=== PATIENT | female | born 1955 | race Caucasian/White ===

== ENCOUNTER 2019-07-21 16:59 | Inpatient (IN) | payer OTHER ==
[~2019-07-21] VITALS: Ht 165.1 cm; Wt 54.4 kg
--- NOTE | ~2019-07-21 | EC ---
PATIENT:JULIET WELLER DATE OF SERVICE: 07/21/19 SEX: F MEDICAL RECORD: [id number] DATE OF : 55 LOCATION:[facility] D230 AGE OF PATIENT: 64 ADMISSION DATE: 07/21/19 REFERRING PHYSICIAN: INTERPRETING PHYSICIAN: GREGORY MARR MD ECHOCARDIOGRAM REPORT ECHO CHARGES 4 ECHO COMPLETE Date: 07/22/19 CLINICAL DIAGNOSIS: CHF ECHOCARDIOGRAPHIC MEASUREMENTS (adult normal given) AC root (d.<3.7cm) 2.0 cm LV Septum d (<1.2 cm> 1.0 cm Valve Excursion 1.6 cm LV Septum (systole) 1.1 cm Left Atria (s.<4.0cm> 3.2 cm LVPW d(<1.2cm) 0.8 cm RV (d.<2.3cm) 3.0 cm LVPW (sytole) 1.0 cm LV diastole(<5.6CM) 3.7 cm MV E-F(>70mm/sec) cm LV systole 2.7 cm LVOT Diameter 1.9 cm MV exc.(>10mm) cm Est.ejection fraction (50-75%) % DOPPLER: LVIT cm/sec A 52 cm/sec E 70 cm/sec LA cm/sec RVSP 37.5 mmHg LVOT 81 cm/sec AOP1/2T m/s Asc. Ao 112 cm/sec RVOT 53 cm/sec RA cm/sec PA 73 cm/sec AV Gradient Peak 5.0 mmHg AV Mean 2.6 mmHg AV Area 2.4 cm MV Gradient Peak 3.6 mmHg MV Mean 1.6 mmHg MV Area cm COMMENTS: Lawn Mower Sharpener: Jean ESPAÑA Ui Ux Engineer: 1 Dr. Marr TAPE# PACS Pericardial Effusion N DATE OF SERVICE: 07/22/2019 FINDINGS: 1. Left ventricular chamber size is within normal limits. Left ventricular systolic function is normal. Overall ejection fraction estimated at 55%. 2. Left atrium, right atrium, and right ventricle chamber sizes are within normal limits. 3. Valvular structures have normal structure and motion. 4. Doppler interrogation reveals mild mitral regurgitation, mild tricuspid regurgitation, no other valvular insufficiency or stenosis. ECHOCARDIOGRAM REPORT [id number] JULIET WELLER 5. No evidence of pericardial effusion or left ventricular thrombus. TRANSINT:[id number] Voice Confirmation ID: [id number] DOCUMENT ID: [id number] GREGORY MARR MD CC: [id number] DICTATION DATE: 07/23/19 1227 MARINE STEWARD: 07/23/19 1541 ADM IN [place] [id number] [place] [id number]
[2019-07-21] MEDS ORDERED: CETIRIZINE HCL5 MG PO (17:08)
[2019-07-21] MEDS ORDERED: SYMBICORT 16010.2 GM INH (17:11)
[2019-07-21] MEDS ORDERED: SPIRIVA18 MCG INH (17:11)
[2019-07-21] MEDS ORDERED: ATIVAN1 MG PO (17:12)
[2019-07-21] MEDS ORDERED: LAMICTAL150 M1 PO (17:13)
[2019-07-21] MEDS ORDERED: METHOCARBAMOL750 MG NG (17:13)
[2019-07-21] MEDS ORDERED: NAPROSYN500 MG PO (17:13)
--- NOTE | 2019-07-21 17:26 | NUR ---
PT ARRIVED VIA [facility] AT BEDSIDE. VSS. DR SHERIFF NOTIFIED. WILL CONTINUE TO MONITOR
[2019-07-21 19:00] VITALS: BP 120/74
--- NOTE | 2019-07-21 19:10 | NUR ---
RECEIVED BEDSIDE SHIFT REPORT, ORAL CARE PERFORMED, TURNED FOR COMFORT AND SKIN INTEGRITY, NG TUBE PLACEMENT CHECKED AMISSIONS ASSESSMENT COMPLETED. SEE FLOWSHEETR
[2019-07-21 20:00] VITALS: BP 124/62
[2019-07-21 21:00] VITALS: BP 128/63
[2019-07-21 22:00] VITALS: BP 111/59
--- NOTE | 2019-07-21 22:39 | NUR ---
UNABLE TO OBTAIN SUICIDE SCREENING AT THIST TIME UNABLE TO ANSWER QUESTIONS APPROPRIATELY
[2019-07-21 22:54] VITALS: BP 124/76
[2019-07-21 23:00] VITALS: BP 89/50
--- NOTE | 2019-07-21 23:10 | NUR ---
REASSESSMENT COMPLETED SEE FLOWSEET
[2019-07-22] VITALS (23 sets, daily range): BP systolic 120–136; BP diastolic 56–72; BMI 19.9
--- NOTE | 2019-07-22 00:04 | NUR ---
PT RESTING COMFORTABLY SHIFT ASSESSMENT COMPLETED
[2019-07-22 04:26] LABS: BASOPHILS 0.1 % (0-2); EOSINOPHILS 0 % (0-7); HEMATOCRIT 40.9 % (36.0-48.0); HEMOGLOBIN 13.3 g/dL (12-16); IMMATURE GRANULOCYTES 2.5 % (0-5); LYMPHOCYTES 8.7 % (15-50); MCH 28.9 pg (26.0-34.0); MCHC 32.5 g/dL (31.0-37.0); MCV 88.7 fL (80.0-100.0); MEAN PLATELET VOLUME 9.5 fL (7.4-10.4); MONOCYTES 9.4 % (2-11); NEUTROPHILS 79.3 % (40-80); PLATELET COUNT 249 10x3/uL (130-400); RBC 4.61 10x6/uL (4.00-5.40); RDW 13.2 % (11.5-14.5); WBC 12.2 10x3/uL (4.8-10.8)
[2019-07-22 04:36] LABS: INR 1.17 (0.85-1.17); PROTIME 14.4 SECONDS (11.6-15.0)
[2019-07-22 04:37] LABS: D-DIMER-QUANTITATIVE 0.96 ug/mLFEU (0.20-0.54)
[2019-07-22 05:08] LABS: ALBUMIN 2.4 g/dL (3.4-5.0); ALKALINE PHOSPHATASE 56 U/L (46-116); ALT (SGPT) 37 U/L (10-68); CALC OSMOLALITY 270 mosm/kg (275-300); CALCIUM 7.7 mg/dL (8.5-10.1); CHLORIDE - SERUM 98 mmol/L (98-107); CREATININE - SERUM 0.4 mg/dL (0.6-1.3); GLUCOSE 121 mg/dL (74-106); MAGNESIUM - SERUM 2.1 mg/dL (1.8-2.4); PHOSPHOROUS 2.8 mg/dL (2.5-4.9); PRO BNP 1203 pg/mL (0-125); PROTEIN - SERUM 5.8 g/dL (6.4-8.2); SODIUM 136 mmol/L (136-145); UREA NITROGEN 8 mg/dL (7-18); eGFR NON AFRICAN AMERICAN > 90 mL/min (90-120)
--- NOTE | 2019-07-22 07:00 | NUR ---
RECEIVED BEDSIDE REPORT ON PATIENT AND ASSUMED CARE. PATIENT SEDATED ON VENT, AROUSES TO STIMULI AND FOLLOWS COMMANDS. VSS. CM - SR RATE 65 WITH NO ECTOPY NOED. BBS - CLEAR AND EQUAL, WITH SPO2 OF 96% VENT SETTINGS ARE A/C 15, TV 500, PEEP 5 AND FO2 30%. MIDLINE CATHETER TO LEFT UPPER ARM, DRESSING C/D/I, DATED 07/21/19, INFUSING FNS AT 75 CC/HR AND FENTANYL AT 0.5 CC/HR OR 25 MCG/HR, W/O DIFFICUTLY. SCD'S IN PLACE. HEAD TO TOE ASSESSMENT COMPLETED. PATIENT TURNED AND REPOSITONED.
--- NOTE | 2019-07-22 08:46 | NUR ---
PATEINT RESTING QUIETLY, SEDATED ON VENT. VSS. TURNED AND REPOSITIONED.
--- NOTE | 2019-07-22 10:39 | NUR ---
PATIENTS SISTER IN LAW, NEIL STEED AT ROOM UPDATED AND QUESTIONS ANSWERED. STATES HER TELEPHONE NUMBER IS [phone], PROVIDES SON'S NAME MOOK ACEVEDO, LIVES IN [place], TELEPHONE NUMBER [phone]. STATES PATIENT IS A CURRENT SMOKER, PACK A DAY, AND THAT PATIENT DOES NOT HAVE A LIVING WILL OR ADVANCED DIRECTIVE. STATES SHE IS ONLY ON O2 DURING HS.
--- NOTE | 2019-07-22 10:51 | NUR ---
DR. ALEXANDRE AT ROOM UPDATED AND EXAMINES PATIENT. WILL PLAN ON WEANING AND EXTUBATING TOMORROW. VENT SETTINGS CHANGED TO SIMV - 12, TV 550, PEEP 5, FIO2 30%. REASSESSMENT COMPLETED, VSS. TURNED AND REPOSITIONED.
--- NOTE | 2019-07-22 12:39 | NUR ---
PATIENT RESTING QUIETLY, SEDATED ON VENT. VSS. TURNED AND REPOSITIONED IN BED.
--- NOTE | 2019-07-22 13:30 | NUR ---
DR. SHELL AT ROOM UPDATED AND EXAMINES PATIENT.
--- NOTE | 2019-07-22 15:00 | NUR ---
REASSESSMENT COMPLETED. VSS. TURNED AND REPOSITONED IN BED.
--- NOTE | 2019-07-22 17:00 | NUR ---
PATIENT TURNED AND REPOSITIONED IN BED. VSS.
--- NOTE | 2019-07-22 19:19 | NUR ---
BEDSIDE SHIFT REPORT COMPLETED, FULL ASSESSMENT PERFORMED SEE FLOWSHEET, PATIENT COMPLAINS OF PAIN 10/10 ON NUMERIC PAIN SCALE LLQ - PALPABLE BUBBLING FELT. REPOSITIONED FOR COMFORT
--- NOTE | 2019-07-22 22:39 | NUR ---
FAMILY CALLED TO CHECK ON PATIENT STATUS, PASSWORD GIVEN, ALL QUESTIONS ANSWERED UPDATE GIVEN CPOC
--- NOTE | 2019-07-22 23:02 | NUR ---
REASSESSMENT COMPLETED SEE FLOWSHEET
[2019-07-23] VITALS (23 sets, daily range): BP systolic 106–142; BP diastolic 53–84; Ht 165.1 cm; Wt 54.4 kg
[2019-07-23 03:46] LABS: BASOPHILS 0.1 % (0-2); EOSINOPHILS 0 % (0-7); HEMATOCRIT 41.8 % (36.0-48.0); HEMOGLOBIN 13.9 g/dL (12-16); IMMATURE GRANULOCYTES 2.1 % (0-5); MCH 28.8 pg (26.0-34.0); MCHC 33.3 g/dL (31.0-37.0); MEAN PLATELET VOLUME 9.4 fL (7.4-10.4); MONOCYTES 10.1 % (2-11); NEUTROPHILS 78.7 % (40-80); PLATELET COUNT 280 10x3/uL (130-400); RBC 4.83 10x6/uL (4.00-5.40); WBC 14.7 10x3/uL (4.8-10.8)
[2019-07-23 03:48] LABS: MCV 86.5 fL (80.0-100.0)
[2019-07-23 04:11] LABS: ALBUMIN 2.4 g/dL (3.4-5.0); ALKALINE PHOSPHATASE 55 U/L (46-116); ALT (SGPT) 29 U/L (10-68); BILIRUBIN - TOTAL 0.61 mg/dL (0.2-1.3); CALC OSMOLALITY 261 mosm/kg (275-300); CALCIUM 7.9 mg/dL (8.5-10.1); CARBON DIOXIDE 32.5 mmol/L (21.0-32.0); CHLORIDE - SERUM 96 mmol/L (98-107); CREATININE - SERUM 0.4 mg/dL (0.6-1.3); GLUCOSE 139 mg/dL (74-106); MAGNESIUM - SERUM 2.2 mg/dL (1.8-2.4); PHOSPHOROUS 2.6 mg/dL (2.5-4.9); POTASSIUM - SERUM 3.9 mmol/L (3.5-5.1); PROTEIN - SERUM 6.1 g/dL (6.4-8.2); SODIUM 130 mmol/L (136-145); UREA NITROGEN 10 mg/dL (7-18); eGFR NON AFRICAN AMERICAN > 90 mL/min (90-120)
--- NOTE | 2019-07-23 08:10 | NUR ---
SEDATION OFF ,VENT ON CPAP WILL CONTINUE TO MONITOR.
--- NOTE | 2019-07-23 09:45 | NUR ---
PAGED ABG DONE. NEW ORDERS TO EXTUBATE PT. EXTUBATED AT 1000 PT ON 3L NC WILL CONTINUE TO MONITOR.
--- NOTE | 2019-07-23 17:30 | NUR ---
PAGED FOR HOME MEDS STARTED BACK.
--- NOTE | 2019-07-23 19:21 | NUR ---
REPORT RECIEVED, SHIFT ASSESSMENT COMPLETE, PT IS ALERT AND ORIENTED, ON 2L NC WITH 98% O2 SAT. ALL PPP, VSS, CALL LIGHT IN REACH
--- NOTE | 2019-07-23 21:15 | NUR ---
PT UPTO BSC AT THIS TIME, TOLERATED WELL
--- NOTE | 2019-07-23 23:20 | NUR ---
REASSESSMENT COMPLETE, NO CHANGES NOTED, PT RESTING COMFORTABLY AT THIS TIME, VSS, CALL LIGHT IN REACH
[2019-07-24] VITALS (10 sets, daily range): BP systolic 106–141; BP diastolic 60–89
--- NOTE | 2019-07-24 01:10 | NUR ---
PT UPTO BSC, TOLERATED WELL
--- NOTE | 2019-07-24 03:17 | NUR ---
REASSESSMENT COMPLETE, NO CHANGES NOTED, PT RESTING AT THIS TIME ,VSS, CALL LIGHT IN REACH
--- NOTE | 2019-07-24 08:56 | NUR ---
Nutrition follow-up: Pt extubated 07/23; regular diet ordered Labs reviewed Wt: 120# RDN following.
[2019-07-24 13:18] LABS: ALKALINE PHOSPHATASE 56 U/L (46-116); BILIRUBIN - TOTAL 0.77 mg/dL (0.2-1.3); CALC OSMOLALITY 268 mosm/kg (275-300); CALCIUM 8.4 mg/dL (8.5-10.1); CHLORIDE - SERUM 98 mmol/L (98-107); CREATININE - SERUM 0.4 mg/dL (0.6-1.3); GLUCOSE 94 mg/dL (74-106); MAGNESIUM - SERUM 2.2 mg/dL (1.8-2.4); PHOSPHOROUS 2.9 mg/dL (2.5-4.9); PROTEIN - SERUM 6.9 g/dL (6.4-8.2); SODIUM 135 mmol/L (136-145); UREA NITROGEN 11 mg/dL (7-18); eGFR NON AFRICAN AMERICAN > 90 mL/min (90-120)
[2019-07-24 13:21] LABS: ALBUMIN 3.1 g/dL (3.4-5.0); ALT (SGPT) 41 U/L (10-68)
[2019-07-24 13:42] LABS: BASOPHILS 0.1 % (0-2); EOSINOPHILS 0 % (0-7); HEMOGLOBIN 14.5 g/dL (12-16); IMMATURE GRANULOCYTES 1.4 % (0-5); LYMPHOCYTES 8.7 % (15-50); MCH 29.2 pg (26.0-34.0); MCHC 33.7 g/dL (31.0-37.0); MCV 86.7 fL (80.0-100.0); MEAN PLATELET VOLUME 9.8 fL (7.4-10.4); MONOCYTES 5.2 % (2-11); NEUTROPHILS 84.6 % (40-80); PLATELET COUNT 256 10x3/uL (130-400); RBC 4.96 10x6/uL (4.00-5.40); RDW 13.2 % (11.5-14.5); WBC 12.6 10x3/uL (4.8-10.8)
--- NOTE | 2019-07-24 16:26 | NUR ---
JENNIFER ARRIVED HERE FROM ICU. SHE IS AWAKE AND ALERT AND DENIES ANY NEEDS AT THIS TIME. EXTUBATED YESTERDAY, PASSED SWALLOW STUDY AND SHE IS ON A REGULAR DIET. SHE WOULD LIKE TO GO HOME SOON AND IS ASKING ABOUT PHONE NUMBERS THAT ARE ON HER CHART. SHE IS SITTING UP IN THE CHAIR.
--- NOTE | 2019-07-24 17:17 | MORECARE ---
CASE MANAGEMENT DISCHARGE SUMMARY PATIENT: JULIET WELLER UNIT: [id number] ADM DATE: 07/21/19 AGE: 64 : 55 SEX: F ROOM/BED: D.2109 AUTHOR: JUS CARDOZA PHYSICIAN: REFERRING PHYSICIAN: LORRAINE ALVAREZ MD DATE OF SERVICE: 07/24/19 Discharge Plan Patient Name: JULIET WELLER [facility] [facility] 1955 Planned Disposition: Anticipated Discharge Date: Discharge Date: Expected LOS: Initial Reviewer: [email or web address] Initial Review Date: 07/24/2019 Generated: 07/24/19 6:17 pm Patient Name: JULIET WELLER Page 90067 at 1717 All edits/amendments must be made on the electronic document DICTATION DATE: 07/24/191716 CORPORATE SERVICES MANAGER: BIGG 07/24/191716 RPT#: [id number] UT DATE: STATUS: ADM IN [facility] [address] [place] [address] END OF REPORT
--- NOTE | 2019-07-24 17:26 | MORECARE ---
CASE MANAGEMENT DISCHARGE SUMMARY PATIENT: JULIET WELLER UNIT: [id number] ADM DATE: 07/21/19 AGE: 64 : 55 SEX: F ROOM/BED: D.2107 AUTHOR: SONY,DOC PHYSICIAN: REFERRING PHYSICIAN: LORRAINE ALVAREZ MD DATE OF SERVICE: 07/24/19 Discharge Plan Patient Name: JULIET WELLER Facility: [facility]:[place] : 1955 Planned Disposition: Anticipated Discharge Date: Discharge Date: Expected LOS: Initial Reviewer: [email or web address] Initial Review Date: 07/24/2019 Generated: 07/24/19 6:25 pm Comments DCP- Discharge Planning Updated by [email or web address]: Sue Fields on 07/24/19 4:[address] Patient Name: JULIET WELLER Admission Status: Urgent Accout number: [id number] Admission Date: 07-21-2019 : 1955 Admission Diagnosis: Attending: LORRAINE ALVAREZ Current LOS: 3 Anticipated DC Date: Planned Disposition: Primary Insurance: [facility] Discharge Planning Comments: CM met with patient to complete initial dc planning assessment. CM educated patient on the CM role and verbal consent given by patient to complete assessment. Patient lives at home alone where she is independent with her care. At discharge patient plans to return home and feels this is a safe discharge. CM discussed availability of home health, rehab services, and medical equipment. Her daughter will be her frontload driver home. Patient has a nebulizer and home o2 ( [employer] ) Patient stated she use to have a CPAP but they took it back because she didn't use it. Patient denied known discharge needs at this time. CM will continue to follow and will assist as needed with dc plans/needs. Pad Hand: Sue Fields DCPIA - Discharge Planning Initial Assessment Updated by [email or web address]: Sue Fields on 07/24/19 5:17 pm * Is the patient Alert and Oriented? Yes * How many steps to enter\exit or inside your home? 6-7 * PCP [facility] * Pharmacy [facility] * Preadmission Environment Home Alone * ADLs Independent * Other Equipment W/C, HOME 02, NEBULIZER * List name and contact numbers for known caregivers / representatives who currently or will assist patient after discharge: DANYEL OWEN - DAUGHTER - [phone], * Verbal permission to speak to the caregivers and representatives has been obtained from the patient. Yes * Community resources currently utilized None * Additional services required to return to the preadmission environment? No * Can the patient safely return to the preadmission environment? Yes * Has this patient been hospitalized within the prior 30 days at any hospital? No Last DP export: 07/24/19 4:17 Patient Name: JULIET WELLER Page [phone] at 1726 All edits/amendments must be made on the electronic document DICTATION DATE: 07/24/191724 RADIOCHEMICAL TECHNICIAN: BIGG 07/24/191724 RPT#: [id number] DC DATE: STATUS: ADM IN [facility] [address] [place] [address] END OF REPORT
--- NOTE | 2019-07-24 19:40 | NUR ---
PT SITTING UP IN CHAIR. PT IS TEARFUL AT THIS TIME AND STATES SHE DOES NOT NEED ANYTHING AT THIS TIME. THIS NURSE ASKED IF PT WAS OKAY AND SHE STATED "YES". CL IN REACH. BED IN LOW SIDE RAILS X2 FALL PRECAUTIONS IN PLACE. CONFUSED AT TIMES. PT IS HAVING SOME ANXIETY AT THIS TIME. WILL GIVE ATIVAN LITTLE EARLY DUE TO TEARFUL EPISODE. WCTM
--- NOTE | 2019-07-24 22:00 | NUR ---
PT WEARS 3L OF O2 QHS. PLACED O2 NC ON PT AT THIS TIME
[2019-07-25 00:09] VITALS: BP 123/65
--- NOTE | 2019-07-25 02:09 | NUR ---
I have reviewed this patient and I concur with the Shift Assessment completed by the Licensed Practical Nurse today this shift.
[2019-07-25 04:00] VITALS: BP 137/61
[2019-07-25 05:12] LABS: BASOPHILS 0.1 % (0-2); EOSINOPHILS 0.1 % (0-7); HEMATOCRIT 38.3 % (36.0-48.0); HEMOGLOBIN 12.7 g/dL (12-16); IMMATURE GRANULOCYTES 1.1 % (0-5); MCH 28.5 pg (26.0-34.0); MCHC 33.2 g/dL (31.0-37.0); MCV 86.1 fL (80.0-100.0); MEAN PLATELET VOLUME 9.6 fL (7.4-10.4); NEUTROPHILS 80.7 % (40-80); PLATELET COUNT 239 10x3/uL (130-400); RBC 4.45 10x6/uL (4.00-5.40); RDW 13.2 % (11.5-14.5); WBC 10.2 10x3/uL (4.8-10.8)
[2019-07-25 05:58] LABS: ALBUMIN 2.6 g/dL (3.4-5.0); ALKALINE PHOSPHATASE 49 U/L (46-116); ALT (SGPT) 40 U/L (10-68); BILIRUBIN - TOTAL 0.58 mg/dL (0.2-1.3); CALC OSMOLALITY 274 mosm/kg (275-300); CALCIUM 8.1 mg/dL (8.5-10.1); CARBON DIOXIDE 32.5 mmol/L (21.0-32.0); CHLORIDE - SERUM 102 mmol/L (98-107); CREATININE - SERUM 0.5 mg/dL (0.6-1.3); GLUCOSE 104 mg/dL (74-106); MAGNESIUM - SERUM 2.1 mg/dL (1.8-2.4); PHOSPHOROUS 3.2 mg/dL (2.5-4.9); POTASSIUM - SERUM 3.4 mmol/L (3.5-5.1); PROTEIN - SERUM 5.7 g/dL (6.4-8.2); SODIUM 138 mmol/L (136-145); UREA NITROGEN 10 mg/dL (7-18); eGFR NON AFRICAN AMERICAN > 90 mL/min (90-120)
--- NOTE | 2019-07-25 07:37 | NUR ---
AWAKE AND ALERT. UP AB DAKOTAH. LEFT UPPER ARM IV WITH D5 1/2 AT 75. DENIES AN7Y NEEDS. UP IN ROOM. GAIT STEADY. WILL MONITOR
[2019-07-25 09:19] VITALS: BP 129/63
[2019-07-25] MEDS ORDERED: VIBRAMYCIN 100100 MG PO (10:37)
[2019-07-25] MEDS ORDERED: PREDNISONE10 MG PO (10:38)
[2019-07-25] MEDS ORDERED: PROTONIX40 MG PO (10:39)
[2019-07-25] MEDS ORDERED: IPRAT-ALBUT 0.5-3 ML UPD (10:40)
--- NOTE | 2019-07-25 11:33 | MORECARE ---
CASE MANAGEMENT DISCHARGE SUMMARY PATIENT: JULIET WELLER UNIT: [id number] ADM DATE: 07/21/19 AGE: 64 : 55 SEX: F ROOM/BED: D.2107 AUTHOR: SONY,DOC PHYSICIAN: REFERRING PHYSICIAN: LORRAINE ALVAREZ MD DATE OF SERVICE: 07/25/19 Discharge Plan Patient Name: JULIET WELLER Facility: [facility]:[place] : 1955 Planned Disposition: Home Anticipated Discharge Date: 07/25/19 Discharge Date: Expected LOS: 4 Initial Reviewer: [email or web address] Initial Review Date: 07/24/2019 Generated: 07/25/19 12:33 pm Comments DCP- Discharge Planning Updated by [email or web address]: Sue Fields on 07/24/19 4:[address] Patient Name: JULIET WELLER Admission Status: Urgent Accout number: [id number] Admission Date: 07-21-2019 : 1955 Admission Diagnosis: Attending: LORRAINE ALVAREZ Current LOS: 3 Anticipated DC Date: Planned Disposition: Primary Insurance: [facility] Discharge Planning Comments: CM met with patient to complete initial dc planning assessment. CM educated patient on the CM role and verbal consent given by patient to complete assessment. Patient lives at home alone where she is independent with her care. At discharge patient plans to return home and feels this is a safe discharge. CM discussed availability of home health, rehab services, and medical equipment. Her daughter will be her coach driver home. Patient has a nebulizer and home o2 ( [facility] ) Patient stated she use to have a CPAP but they took it back because she didn't use it. Patient denied known discharge needs at this time. CM will continue to follow and will assist as needed with dc plans/needs. Framing Manager: Sue Fields DCPIA - Discharge Planning Initial Assessment Updated by [email or web address]: Sue Fields on 07/24/19 5:17 pm * Is the patient Alert and Oriented? Yes * How many steps to enter\exit or inside your home? 6-7 * PCP [facility] * [facility] * Preadmission Environment Home Alone * ADLs Independent * Other Equipment W/C, HOME 02, NEBULIZER * List name and contact numbers for known caregivers / representatives who currently or will assist patient after discharge: DANYEL OWEN - DAUGHTER - [phone], * Verbal permission to speak to the caregivers and representatives has been obtained from the patient. Yes * Community resources currently utilized None * Additional services required to return to the preadmission environment? No * Can the patient safely return to the preadmission environment? Yes * Has this patient been hospitalized within the prior 30 days at any hospital? No External Providers External Provider: Austin Next Contact Date: 07/25/2019 Service Request Date: Service Type: Resolution: Reviewer: Comments: Last DP export: 07/24/19 4:26 Patient Name: JULIET WELLER Page 18833 at 1133 All edits/amendments must be made on the electronic document DICTATION DATE: 07/25/19 1133 BULK PIGMENT REDUCER: BIGG 07/25/19 1133 RPT#: [id number] DC DATE: STATUS: ADM IN [facility] [address] [place] [address] END OF REPORT
--- NOTE | 2019-07-25 11:57 | MORECARE ---
CASE MANAGEMENT DISCHARGE SUMMARY PATIENT: JULIET WELLER UNIT: [id number] ADM DATE: 07/21/19 AGE: 64 : 55 SEX: F ROOM/BED: D.2107 AUTHOR: SONY,DOC PHYSICIAN: REFERRING PHYSICIAN: LORRAINE ALVAREZ MD DATE OF SERVICE: 07/25/19 Discharge Plan Patient Name: JULIET WELLER Facility: [facility]:[place] : 1955 Planned Disposition: Home Anticipated Discharge Date: 07/25/19 Discharge Date: Expected LOS: 4 Initial Reviewer: [email or web address] Initial Review Date: 07/24/2019 Generated: 07/25/19 12:57 pm Comments DCP- Discharge Planning Updated by [email or web address]: Marcos Pickard on 07/25/19 10:[address] Patient Name: JULIET WELLER Encounter No: [id number] : 1955 [facility] Anticipated DC Date: 07-25-2019 Planned Disposition: Home DCP follow-up note: CM RECEIVED OXYGEN TESTING, PT 84% ON ROOM AIR AT REST, 94% ON 2LNC OXYGEN AT REST. CM REVIEWED ABG TESTING, PT HAS P02 OF 54 ON 07-23. CM SPOKE TO DR. LANE WHO INFORMED CM THAT PT WILL NEED PORTABLE OXYGEN AND MAY DISCHARGE TODAY. CM MET WITH PT IN ROOM TO DISCUSS DISCHARGE NEEDS AND PLANNING. CM DISCUSSED AVAILABILITY OF HOME HEALTH, REHAB SERVICES AND MEDICAL EQUIPMENT. PT DENIES DISCHARGE NEEDS OTHER THAN OXYGEN; PT HAS HOME OXYGEN AND EMERGENCY TANK FROM [facility] IN [facility], DOES NOT HAVE PORTABLE OXYGEN. PT WANTS TO USE [facility], CHOICE SIGNED. PT REPORTS FAMILY TO TRANSPORT HOME AT DISCHARGE TODAY. CM CALLED [facility], , SPOKE TO GERARDO WHO WILL HAVE BINDER CUTTERRAMP MANAGER CONTACT CM. CM RECEIVED CALL FROM KEWANEE OF [facility] IN [facility], WHO TOOK OXYGEN ORDER. KEWANEE WILL HAVE RYAN TRIM[facility] DELIVER PORTABLE OXYGEN TO PT'S ROOM FOR DISCHARGE HOME TODAY WITHIN THE HOUR. CM FAXED OXYGEN ORDERS AND REFERRAL TO [facility] AT [phone]. BEDSIDE NURSE NOTIFIED. [facility] TO ARRANGE PORTABLE OXYGEN TO HOPITAL ROOM FOR DISCHARGE HOME TODAY. PT HAS HOME OXYGEN AT HOME. Marcos Pickard, CASE MANAGEMENT DCP- Discharge Planning Updated by [email or web address]: Sue Fields on 07/24/19 4:[address] Patient Name: JULIET WELLER Admission Status: Urgent Accout number: [id number] Admission Date: 07-21-2019 : 1955 Admission Diagnosis: Attending: LORRAINE ALVAREZ Current LOS: 3 Anticipated DC Date: Planned Disposition: Primary Insurance: [facility] Discharge Planning Comments: CM met with patient to complete initial dc planning assessment. CM educated patient on the CM role and verbal consent given by patient to complete assessment. Patient lives at home alone where she is independent with her care. At discharge patient plans to return home and feels this is a safe discharge. CM discussed availability of home health, rehab services, and medical equipment. Her daughter will be her straddle bug driver home. Patient has a nebulizer and home o2 ( [facility] ) Patient stated she use to have a CPAP but they took it back because she didn't use it. Patient denied known discharge needs at this time. CM will continue to follow and will assist as needed with dc plans/needs. Keller Machine Operator: Sue Fields DCPIA - Discharge Planning Initial Assessment Updated by [email or web address]: Sue Fields on 07/24/19 5:17 pm * Is the patient Alert and Oriented? Yes * How many steps to enter\exit or inside your home? 6-7 * PCP [facility] * Pharmacy [facility] * Preadmission Environment Home Alone * ADLs Independent * Other Equipment W/C, HOME 02, NEBULIZER * List name and contact numbers for known caregivers / representatives who currently or will assist patient after discharge: DANYEL OWEN - DAUGHTER - [phone], * Verbal permission to speak to the caregivers and representatives has been obtained from the patient. Yes * Community resources currently utilized None * Additional services required to return to the preadmission environment? No * Can the patient safely return to the preadmission environment? Yes * Has this patient been hospitalized within the prior 30 days at any hospital? No Coverage Notice Reviewer: [email or web address] - Marcos Pickard Notice Issued Date-Time: 07/25/2019 11:07 Notice Type: Patient Choice Letter Notice Delivered To: Patient Relationship to Patient: C++ Professor Name: Delivery Method: HAND - Hand Delivered Alejandra Days: Prior Verbal Notification: Recipient Understood Notice: Yes Recipient Signature: Yes Med Rec Note Co-signed by Attending: Coverage Notice Comment: GISELLA YOON export: 07/25/19 10:33 Patient Name: JULIET WELLER Page [phone] at 1157 All edits/amendments must be made on the electronic document DICTATION DATE: 07/25/19 1157 READING INTERVENTIONIST: BIGG 07/25/19 1157 RPT#: [id number] DC DATE: STATUS: ADM IN [facility] [address] [place] [address] END OF REPORT
--- NOTE | 2019-07-25 12:05 | NUR ---
I have reviewed this patient and I concur with the Shift Assessment completed by the Licensed Practical Nurse today this shift.
[2019-07-25 12:13] VITALS: BP 132/57
--- NOTE | 2019-07-25 14:00 | NUR ---
PT DISCHARGED. IV DCD WITH TIP INTACT. INSTRUCTINS GIVEN TO PT. AWAITING TRANSPORTATION.
[2019-07-26 03:06] LABS: IMMUNOGLOBULIN E 23 IU/mL (6-495)
== END 2019-07-25 15:31 | disposition home or self-care (01) | DRG 208 ==
LOC: D.ICU 16:59 → D.M2 07-24 16:09
PROVIDERS: Internal Medicine Pulmonary Disease; ADMIT Internal Medicine Nephrology; ATTEND Internal Medicine Nephrology
PROC: 5A1945Z Respiratory Ventilation, 24-96 Consecutive Hours (ICD-10-PCS; principal; 2019-07-21)
DX: J96.22 Acute and chronic respiratory failure with hypercapnia (principal); J18.9 Pneumonia, unspecified organism; J44.1 Chronic obstructive pulmonary disease with (acute) exacerbation; N17.9 Acute kidney failure, unspecified; J96.21 Acute and chronic respiratory failure with hypoxia; Z99.81 Dependence on supplemental oxygen